=== PATIENT | female | born 1940 | race Caucasian/White ===

== ENCOUNTER 2022-08-04 10:04 | Day surgery (SDC) | payer MEDICARE ==
[2022-08-02 15:58] LABS: BASOPHILS % (AUTO) 0.3 % (0.0-5.0); HEMATOCRIT 40.7 % (36-48); LYMPHOCYTES % (AUTO) 26.4 % (21.0-51.0); MEAN CORPUSCULAR HEMOGLOBIN 30.8 pg (27.0-33.0); MEAN CORPUSCULAR HGB CONC 31.9 g/dL (32.0-36.0); MEAN CORPUSCULAR VOLUME 96.4 fL (79-99); MONOCYTES % (AUTO) 9.7 % (3.0-13.0); NEUTROPHILS % (AUTO) 59.4 % (40.0-77.0); PLATELET COUNT (AUTO) 204 K/uL (130-400); RED BLOOD CELL COUNT(AUTO) 4.22 MIL/uL (4.00-5.50); RED CELL DISTRIBUTION WIDTH 12.6 % (11.0-15.5); WHITE BLOOD COUNT (AUTO) 5.8 K/uL (4.8-10.8)
[2022-08-02 16:10] LABS: CREATININE 0.9 mg/dL (0.5-1.5); POTASSIUM 4.3 mmol/L (3.5-5.1)
[2022-08-02 16:12] LABS: INR 1.35 (0.85-1.15); PROTHROMBIN TIME 14.5 SEC (9.6-11.6)
[2022-08-02 16:13] LABS: PARTIAL THROMBOPLASTIN TIME 39.9 SEC (26.3-35.5)
[2022-08-03 09:52] VITALS: BP 122/65
[2022-08-04] VITALS (14 sets, daily range): BP systolic 121–173; BP diastolic 76–113
[~2022-08-04] VITALS: Ht 166.4 cm; Wt 88.7 kg
[~2022-08-04 10:04] MED LIST: 0.9% NACL 500ML IV.SOLN 500 ML IV SCH; 0.9%NACL 1000ML 1,000 ML IV ONE; ATOR10 PO; CALCIUM/MG/ZINC PO; CAND1TAB14 PO; CHOL100040 PO; LIDOCAINE HCL 2% VISCOUS 15 ML UDCUP ONE; METO50TA9 PO; NIAC500C13 PO; RIVA20TA PO; UBID1CAP56 PO; VITA-395 PO
[2022-08-04] MEDS ORDERED: FENTANYL CITRATE PF 50 MCG/1 ML 2ML VIAL ONE (11:38)
[2022-08-04] MEDS ORDERED: MIDAZOLAM HCL 1 MG/ML 2ML VIAL ONE (11:39)
[2022-08-04] MEDS ORDERED: METO50TA18 PO (12:36)
== END 2022-08-04 13:03 | disposition home or self-care (01) ==
LOC: DAH 10:04
PROVIDERS: ATTEND Student in an Organized Health Care Education/Training Program
DX: I08.1 Rheumatic disorders of both mitral and tricuspid valves (principal); I70.0 Atherosclerosis of aorta; I48.0 Paroxysmal atrial fibrillation; I10 Essential (primary) hypertension; E78.2 Mixed hyperlipidemia; E03.9 Hypothyroidism, unspecified; Z90.710 Acquired absence of both cervix and uterus; Z90.49 Acquired absence of other specified parts of digestive tract; Z90.89 Acquired absence of other organs; Z98.890 Other specified postprocedural states; Z79.01 Long term (current) use of anticoagulants; Z79.899 Other long term (current) drug therapy
CPT/HCPCS: 80048; 85025; 85610; 85730; 36415; 93005; 93325; 93312; A4223 ×3; J3010; J7030; J2250; A4615; A4215; A7002; A4222; A4221; A4663; A4216; A4606; 99152

== ENCOUNTER 2022-09-01 05:45 | Day surgery (SDC) | payer MEDICARE ==
[2022-08-30 10:33] LABS: BASOPHILS % (AUTO) 0.4 % (0.0-5.0); HEMATOCRIT 42.8 % (36-48); LYMPHOCYTES % (AUTO) 29.6 % (21.0-51.0); MEAN CORPUSCULAR HEMOGLOBIN 30.1 pg (27.0-33.0); MEAN CORPUSCULAR VOLUME 94.1 fL (79-99); MONOCYTES % (AUTO) 7.7 % (3.0-13.0); NEUTROPHILS % (AUTO) 56.9 % (40.0-77.0); PLATELET COUNT (AUTO) 205 K/uL (130-400); RED BLOOD CELL COUNT(AUTO) 4.55 MIL/uL (4.00-5.50); RED CELL DISTRIBUTION WIDTH 12.1 % (11.0-15.5); WHITE BLOOD COUNT (AUTO) 5.2 K/uL (4.8-10.8)
[2022-08-30 10:41] LABS: CREATININE 0.9 mg/dL (0.5-1.5); POTASSIUM 3.6 mmol/L (3.5-5.1)
[2022-08-30 10:47] LABS: INR 1.01 (0.85-1.15)
[2022-08-30 10:48] LABS: PARTIAL THROMBOPLASTIN TIME 30.5 SEC (26.3-35.5)
[2022-08-30 11:21] LABS: B-TYPE NATRIURETIC PEPTIDE 155 pg/mL (0-100)
[2022-08-31 08:38] VITALS: BP 119/80
[2022-09-01] VITALS (11 sets, daily range): BP systolic 100–142; BP diastolic 63–81
[~2022-09-01] VITALS: Ht 168.9 cm; Wt 85.8 kg
[~2022-09-01 05:45] MED LIST changes: -0.9% NACL 500ML IV.SOLN 500 ML IV SCH; -0.9%NACL 1000ML 1,000 ML IV ONE; +FUROSEMIDE PO; -LIDOCAINE HCL 2% VISCOUS 15 ML UDCUP ONE; +METO50TA18 PO; -METO50TA9 PO
[2022-09-01] MEDS ORDERED: 0.9%NACL 1000ML 1,000 ML IV ONE (06:18)
[2022-09-01] MEDS ORDERED: NITROGLYCERIN 50MG VIAL ONE (07:13)
[2022-09-01] MEDS ORDERED: VERAPAMIL HCL 2.5 MG/ML VIAL ONE (07:13)
[2022-09-01] MEDS ORDERED: HEPARIN 10,000 UNIT/10ML (1,000 UNIT/ML) VIAL ONE (07:13)
[2022-09-01] MEDS ORDERED: IOHEXOL 350 MG/ML 100ML INFUS..BTL IV ONE (07:13)
[2022-09-01] MEDS ORDERED: IOHEXOL-350 50ML VIAL IV ONE (07:14)
[2022-09-01] MEDS ORDERED: LIDOCAINE HCL 1% MDV 50ML VIAL ONE (07:14)
[2022-09-01] MEDS ORDERED: FENTANYL CITRATE PF 50 MCG/1 ML 2ML VIAL ONE (07:33)
[2022-09-01] MEDS ORDERED: MIDAZOLAM HCL 1 MG/ML 2ML VIAL ONE (07:33)
[2022-09-01] MEDS ORDERED: 0.9%NACL 10ML VIAL IVP SCH (09:30)
== END 2022-09-01 13:00 | disposition home or self-care (01) ==
LOC: DAH 05:45
PROVIDERS: ATTEND Student in an Organized Health Care Education/Training Program
DX: I25.119 Atherosclerotic heart disease of native coronary artery with unspecified angina pectoris (principal); I34.0 Nonrheumatic mitral (valve) insufficiency; I10 Essential (primary) hypertension; E78.2 Mixed hyperlipidemia; I48.0 Paroxysmal atrial fibrillation; E03.9 Hypothyroidism, unspecified; Z79.01 Long term (current) use of anticoagulants; Z79.899 Other long term (current) drug therapy; Z86.16 Personal history of COVID-19; Z90.710 Acquired absence of both cervix and uterus; Z90.49 Acquired absence of other specified parts of digestive tract; Z90.89 Acquired absence of other organs; Z98.890 Other specified postprocedural states
CPT/HCPCS: 80048; 83880; 85025; 85610; 85730; 36415 ×2; 71045; 93005; 93458; 93571; 85347; C1769 ×3; C1894 ×3; C1760; C1887; J3010; J7030; J1644 ×2; J2250; J3490 ×3; Q9967; A4215; A4222; A4221; A4663; A4216; A4606; Q9965 ×2; A4223 ×3; 99156; 99157

== ENCOUNTER 2022-10-20 08:00 | Inpatient (IN) | payer MEDICARE ==
[~2022-10-20] VITALS: Ht 170.2 cm; Wt 90.3 kg
[~2022-10-20 08:00] MED LIST changes: -ATOR10 PO; -CHOL100040 PO; -FUROSEMIDE PO; -METO50TA18 PO
[2022-10-20 09:33] LABS: ABG BASE EXCESS 3.4 mmol/L (-2.0-3.0); ABG HCO3 27.6 mmol/L (21.0-28.0); ABG PCO2 41 mmHg (32-45)
[2022-10-20 09:49] LABS: HEMOGLOBIN A1C 5.4 % (4.0-6.0)
[2022-10-20 09:59] LABS: ALBUMIN 3.3 g/dL (3.5-5.0); CREATININE 0.9 mg/dL (0.5-1.5); HEMATOCRIT 42.3 % (36-48); MEAN CORPUSCULAR HEMOGLOBIN 30.4 pg (27.0-33.0); MEAN CORPUSCULAR HGB CONC 32.4 g/dL (32.0-36.0); MEAN CORPUSCULAR VOLUME 93.8 fL (79-99); PLATELET COUNT (AUTO) 177 K/uL (130-400); POTASSIUM 3.7 mmol/L (3.5-5.1); RED BLOOD CELL COUNT(AUTO) 4.51 MIL/uL (4.00-5.50); RED CELL DISTRIBUTION WIDTH 12.5 % (11.0-15.5); TOTAL PROTEIN, SERUM 6.7 g/dL (6.0-8.3); WHITE BLOOD COUNT (AUTO) 4.7 K/uL (4.8-10.8)
[2022-10-20 10:01] VITALS: BP 123/73
[2022-10-20] MEDS ORDERED: FURO20TA4 PO (10:06)
[2022-10-20] MEDS ORDERED: VITAMIN B12 PO (10:06)
[2022-10-20] MEDS ORDERED: VITAMIN D3 PO (10:06)
[2022-10-20] MEDS ORDERED: METO50TA9 PO (10:06)
[2022-10-20] MEDS ORDERED: ATOR10 PO (10:06)
[2022-10-20] MEDS ORDERED: ASCO100031 PO (10:06)
[2022-10-20 10:09] LABS: INR 0.98 (0.85-1.15); PROTHROMBIN TIME 10.7 SEC (9.6-11.6)
[2022-10-20 10:11] LABS: PARTIAL THROMBOPLASTIN TIME 27.5 SEC (26.3-35.5)
[2022-10-20 10:29] LABS: BAND NEUTROPHILS % (MANUAL) 7 % (0-2); LYMPHOCYTES % (MANUAL) 37 % (22-44); MONOCYTES % (MANUAL) 6 % (2-9); SEGMENTED NEUTROPHILS % 50 % (40-70)
[2022-10-20 10:30] LABS: MAN.DIFF COMMENT-IMPRESSION MANUAL DIFFERENTIAL; PLATELET MORPHOLOGY COMMENT ADEQUATE
[2022-10-20 10:33] LABS: B-TYPE NATRIURETIC PEPTIDE 103 pg/mL (0-100)
[2022-10-23] MEDS ORDERED: AMINOCAPROIC ACID 5,000MG VIAL 15,000 MG in 0.9% NACL 500ML IV.SOLN 420 ML IV PRN (07:30)
[2022-10-23] MEDS ORDERED: NOREPINEPHRINE BITARTRATE 8 MG in 0.9% NACL 250ML 250 ML IV PRN (07:30)
[2022-10-23] MEDS ORDERED: EPINEPHRINE PF 1MG (1:1,000) 10 MG in 0.9% NACL 250ML 240 ML IV PRN (07:30)
[2022-10-23] MEDS ORDERED: CACL 1GM SYG IVP ONE (09:08)
[2022-10-23] MEDS ORDERED: MANNITOL 25% 50ML VIAL IV ONE (09:08)
[2022-10-23] MEDS ORDERED: MAGNESIUM SULFATE 1 GM/2 ML VIAL IM ONE (09:08)
[2022-10-23] MEDS ORDERED: HEPARIN 10,000 UNIT/10ML (1,000 UNIT/ML) VIAL IV ONE (09:08)
[2022-10-23] MEDS ORDERED: AMINOCAPROIC ACID 5,000MG VIAL IV ONE (09:08)
[2022-10-23] MEDS ORDERED: PHENYLEPHRINE HCL 10 MG/ML 1ML VIAL IV ONE (09:08)
[2022-10-23] MEDS ORDERED: LIDOCAINE PF 100MG/5ML (2%) SYRINGE 5ML IVP ONE (09:08)
[2022-10-23] MEDS ORDERED: SODIUM BICARB 8.4% 50ML SYRINGE IVP ONE (09:08)
[2022-10-23] MEDS ORDERED: ALBUMIN (HUMAN) 25% 50 ML IV ONE (09:08)
[2022-10-23 10:30] VITALS: BP 140/87
[2022-10-23] MEDS ORDERED: CEFAZOLIN SODIUM 2 GM VIAL ONE (11:07)
[2022-10-23] MEDS ORDERED: LACTATED RINGERS 1000ML 1,000 ML IV ONE (11:07)
[2022-10-23] MEDS ORDERED: NITROGLYCERIN 50MG/D5W 250ML 1 BOT ONE (12:38)
[2022-10-23] MEDS ORDERED: BUPIVACAINE/PF 0.5% 30ML VIAL ONE (12:59)
[2022-10-23] MEDS ORDERED: CEFAZOLIN SODIUM 1 GM VIAL ONE (12:59)
[2022-10-23] MEDS ORDERED: ROPIVACAINE 0.5% 5MG/ML 30ML IJ ONE (13:06)
[2022-10-23] MEDS ORDERED: LIDOCAINE PF 100MG/5ML (2%) SYRINGE 5ML ONE (13:12)
[2022-10-23] MEDS ORDERED: PROTAMINE SULFATE 10 MG/ML 25ML VIAL IV ONE (13:12)
[2022-10-23] MEDS ORDERED: HEPARIN 10,000 UNIT/10ML (1,000 UNIT/ML) VIAL ONE (13:12)
[2022-10-23] MEDS ORDERED: EPINEPHRINE PF 1MG (1:1,000) 1 MG/ML AMP ONE (13:12)
[2022-10-23] MEDS ORDERED: ESMOLOL HCL 10 MG/ML 10 ML VIAL ONE (13:12)
[2022-10-23] MEDS ORDERED: SODIUM BICARB 50MEQ 50ML VIAL 150 ML ONE (13:12)
[2022-10-23] MEDS ORDERED: NOREPINEPHRINE BITARTRATE 1 MG/1 ML ML IV ONE (13:13)
[2022-10-23] MEDS ORDERED: AMINOCAPROIC ACID 5,000MG VIAL ONE (13:13)
[2022-10-23] MEDS ORDERED: MIDAZOLAM HCL 1 MG/ML 2ML VIAL ONE (13:13)
[2022-10-23] MEDS ORDERED: FENTANYL CITRATE PF 50 MCG/1 ML 20ML VIAL IJ ONE (13:13)
[2022-10-23] MEDS ORDERED: PROPOFOL 10 MG/ML 20ML VIAL IV ONE (13:13)
[2022-10-23] MEDS ORDERED: ROCURONIUM 10MG/1ML SYR 10 MG/ML ML ONE (13:14)
[2022-10-23] MEDS ORDERED: KETAMINE HCL 50MG/ML 10ML VIAL IJ ONE (13:20)
[2022-10-23] MEDS ORDERED: ACETAMINOPHEN 325 MG TAB PO PRN (20:00)
[2022-10-23] MEDS ORDERED: ONDANSETRON 4MG INJ IVP PRN (20:00)
[2022-10-23 20:08] VITALS: BP 150/116
[2022-10-23 20:36] VITALS: BP 139/74
[2022-10-23] MEDS: ATORVASTATIN 10 MG TABLET PO SCH (20:54)
[2022-10-23] MEDS: NIACIN 1000 MG PO SCH (20:54)
[2022-10-23 23:44] VITALS: BP 114/62
[2022-10-24] VITALS (35 sets, daily range): BP systolic 93–162; BP diastolic 34–108
[2022-10-24] MEDS: NIACIN 1000 MG PO SCH ×2 (08:58→21:00)
[2022-10-24] MEDS ORDERED: FUROSEMIDE 20 MG TABLET PO SCH (09:00)
[2022-10-24] MEDS ORDERED: METOPROLOL SUCCINATE 50 MG TAB.SR.24H PO SCH (09:00)
[2022-10-24] MEDS ORDERED: FENTANYL CITRATE PF 50 MCG/1 ML 20ML VIAL IJ ONE (13:25)
[2022-10-24] MEDS ORDERED: MIDAZOLAM HCL 1 MG/ML 5ML VIAL ONE (13:26)
[2022-10-24] MEDS ORDERED: ROCURONIUM 10MG/1ML SYR 10 MG/ML ML ONE (13:26)
[2022-10-24] MEDS ORDERED: PROPOFOL 10 MG/ML 20ML VIAL IV ONE (13:27)
[2022-10-24] MEDS ORDERED: ROPIVACAINE 0.5% 5MG/ML 30ML IJ ONE (14:43)
[2022-10-24] MEDS ORDERED: CEFAZOLIN SODIUM 1 GM VIAL ONE ×3 (14:43→20:11)
[2022-10-24] MEDS ORDERED: INSULIN REGULAR, HUMAN 3ML 100 UNIT in 0.9%NACL 100ML 99 ML IV SCH ×2 (15:30)
[2022-10-24] MEDS ORDERED: NITROGLYCERIN 50MG/D5W 250ML 250 BOT IV SCH (15:30)
[2022-10-24] MEDS ORDERED: MORPHINE 2 MG SYG IV PRN (15:30)
[2022-10-24] MEDS ORDERED: TRAMADOL HCL 50 MG TABLET PO PRN ×2 (15:30)
[2022-10-24] MEDS ORDERED: ACETAMINOPHEN 325 MG TAB PO PRN (15:30)
[2022-10-24] MEDS ORDERED: AMINOCAPROIC ACID 5,000MG VIAL 15,000 MG in 0.9% NACL 250ML 250 ML IV SCH (15:30)
[2022-10-24] MEDS ORDERED: DEXTROSE 50%-WATER 50 ML DISP.SYRIN IV PRN (15:30)
[2022-10-24] MEDS ORDERED: ALBUMIN (HUMAN) 5% 250 ML IV PRN (15:30)
[2022-10-24] MEDS ORDERED: MORPHINE 4 MG SYG IV PRN (15:30)
[2022-10-24] MEDS ORDERED: POTASSIUM PHOS 15 mMOL+NS250ML 250 ML IV PRN (15:30)
[2022-10-24] MEDS ORDERED: PROPOFOL 1000 MG/100 ML 100 ML IV PRN (15:30)
[2022-10-24] MEDS ORDERED: EPINEPHRINE PF 1MG (1:1,000) 10 MG in 0.9% NACL 250ML 240 ML IV PRN (15:30)
[2022-10-24] MEDS ORDERED: ONDANSETRON 4MG INJ IV PRN (15:30)
[2022-10-24] MEDS ORDERED: 0.9%NACL 10ML VIAL IVP PRN (15:30)
[2022-10-24] MEDS ORDERED: GLUCAGON 1MG KIT 1 MG ML IM PRN (15:30)
[2022-10-24] MEDS ORDERED: ACETAMINOPHEN 650 MG SUPPOSITORY RC PRN (15:30)
[2022-10-24] MEDS ORDERED: 0.9%NACL 1000ML 1,000 ML IV SCH (15:30)
[2022-10-24] MEDS ORDERED: 0.9% NACL 500ML IV.SOLN 500 ML IV SCH (15:30)
[2022-10-24] MEDS ORDERED: NOREPINEPHRIN 4MG/NS 250ML 250 ML IV PRN (15:30)
[2022-10-24 15:46] LABS: ABG HCO3 24.2 mmol/L (21.0-28.0); ABG OXYGEN SATURATION 99.7 % (95.0-99.0); ABG PCO2 42 mmHg (32-45)
[2022-10-24 16:29] LABS: ABG HCO3 21.4 mmol/L (21.0-28.0); ABG OXYGEN SATURATION 99.5 % (95.0-99.0); ABG PCO2 28 mmHg (32-45)
[2022-10-24 17:29] LABS: ABG BASE EXCESS 2.6 mmol/L (-2.0-3.0); ABG HCO3 24.6 mmol/L (21.0-28.0); ABG OXYGEN SATURATION 99.4 % (95.0-99.0); ABG PCO2 29 mmHg (32-45)
[2022-10-24 17:47] LABS: ABG BASE EXCESS -0.1 mmol/L (-2.0-3.0); ABG HCO3 23.8 mmol/L (21.0-28.0); ABG OXYGEN SATURATION 96.7 % (95.0-99.0); ABG PCO2 36 mmHg (32-45)
[2022-10-24] MEDS ORDERED: ALBUMIN (HUMAN) 5% 250 ML IV ONE (18:50)
[2022-10-24 18:57] LABS: ABG BASE EXCESS -3.2 mmol/L (-2.0-3.0); ABG HCO3 22.6 mmol/L (21.0-28.0); ABG OXYGEN SATURATION 97.6 % (95.0-99.0); ABG PCO2 44 mmHg (32-45)
[2022-10-24 19:00] LABS: HEMATOCRIT 31.7 % (36-48); MEAN CORPUSCULAR HEMOGLOBIN 30.9 pg (27.0-33.0); MEAN CORPUSCULAR HGB CONC 31.9 g/dL (32.0-36.0); MEAN CORPUSCULAR VOLUME 96.9 fL (79-99); RED BLOOD CELL COUNT(AUTO) 3.27 MIL/uL (4.00-5.50); RED CELL DISTRIBUTION WIDTH 12.4 % (11.0-15.5); WHITE BLOOD COUNT (AUTO) 20.1 K/uL (4.8-10.8)
[2022-10-24] MEDS ORDERED: SODIUM BICARB 50MEQ 50ML VIAL 100 ML ONE (19:08)
[2022-10-24] MEDS ORDERED: POTASSIUM CHLORIDE 20MEQ/100ML 200 ML IV ONE (19:09)
[2022-10-24 19:11] LABS: CREATININE 0.8 mg/dL (0.5-1.5); MAGNESIUM 2.9 mg/dL (1.80-2.40); PHOSPHORUS 2.8 mg/dL (2.5-4.9)
[2022-10-24 19:16] LABS: POTASSIUM 2.8 mmol/L (3.5-5.1)
[2022-10-24] MEDS: POTASSIUM CHLORIDE 20MEQ/100ML 100 ML IV PRN ×6 (19:19→23:20)
[2022-10-24] MEDS: SODIUM BICARB 50MEQ 50ML VIAL IV PRN ×6 (19:19→23:21)
[2022-10-24 19:26] LABS: INR 1.1 (0.85-1.15); PROTHROMBIN TIME 11.9 SEC (9.6-11.6)
[2022-10-24 19:27] LABS: PARTIAL THROMBOPLASTIN TIME 24.4 SEC (26.3-35.5)
[2022-10-24 19:52] LABS: ABG BASE EXCESS -0.8 mmol/L (-2.0-3.0); ABG HCO3 25.4 mmol/L (21.0-28.0); ABG OXYGEN SATURATION 98.2 % (95.0-99.0); ABG PCO2 49 mmHg (32-45)
[2022-10-24] MEDS ORDERED: POTASSIUM CHLORIDE 20MEQ/100ML 100 ML IV ONE ×3 (19:59→23:15)
[2022-10-24] MEDS: CALCIUM GLUC 1GM 1 GM in 0.9%NACL 50ML 50 ML IV PRN ×3 (20:01→23:20)
[2022-10-24] MEDS ORDERED: SODIUM BICARB 50MEQ 50ML VIAL 50 ML ONE ×3 (20:09→23:15)
[2022-10-24] MEDS: CEFAZOLIN SODIUM 1 GM VIAL IV SCH (20:12)
[2022-10-24 20:56] LABS: ABG BASE EXCESS -2.2 mmol/L (-2.0-3.0); ABG HCO3 22.9 mmol/L (21.0-28.0); ABG OXYGEN SATURATION 97.9 % (95.0-99.0); ABG PCO2 41 mmHg (32-45)
[2022-10-24] MEDS ORDERED: 0.2% ROPIVACAINE 600ML Q-PUMP IRRIG SCH (21:00)
[2022-10-24] MEDS: ATORVASTATIN 10 MG TABLET PO SCH (21:15)
[2022-10-24] MEDS: FAMOTIDINE 20MG VIAL IV SCH (21:16)
[2022-10-24 22:01] LABS: ABG HCO3 24.2 mmol/L (21.0-28.0); ABG OXYGEN SATURATION 97.6 % (95.0-99.0); ABG PCO2 42 mmHg (32-45)
[2022-10-24] MEDS ORDERED: CALCIUM GLUC 1GM/10ML VIAL ONE (22:18)
[2022-10-24 23:10] LABS: ABG BASE EXCESS -3.8 mmol/L (-2.0-3.0); ABG HCO3 21.4 mmol/L (21.0-28.0); ABG OXYGEN SATURATION 97.3 % (95.0-99.0); ABG PCO2 39 mmHg (32-45)
[2022-10-25] VITALS (97 sets, daily range): BP systolic 94–167; BP diastolic 37–147
[2022-10-25 00:02] LABS: ABG HCO3 23.2 mmol/L (21.0-28.0); ABG OXYGEN SATURATION 97.2 % (95.0-99.0); ABG PCO2 37 mmHg (32-45)
[2022-10-25] MEDS ORDERED: POTASSIUM CHLORIDE 20MEQ/100ML 100 ML IV ONE ×3 (00:07→01:46)
[2022-10-25] MEDS ORDERED: SODIUM BICARB 50MEQ 50ML VIAL 50 ML ONE ×3 (00:08→02:08)
[2022-10-25] MEDS ORDERED: CALCIUM GLUC 1GM/10ML VIAL ONE (00:08)
[2022-10-25] MEDS: SODIUM BICARB 50MEQ 50ML VIAL IV PRN ×3 (00:10→02:09)
[2022-10-25] MEDS: CALCIUM GLUC 1GM 1 GM in 0.9%NACL 50ML 50 ML IV PRN ×2 (00:10→08:39)
[2022-10-25] MEDS: POTASSIUM CHLORIDE 20MEQ/100ML 100 ML IV PRN ×4 (00:10→04:14)
[2022-10-25 00:55] LABS: ABG BASE EXCESS -1.1 mmol/L (-2.0-3.0); ABG HCO3 23.4 mmol/L (21.0-28.0); ABG OXYGEN SATURATION 96.6 % (95.0-99.0); ABG PCO2 38 mmHg (32-45)
[2022-10-25 02:05] LABS: ABG BASE EXCESS -1.2 mmol/L (-2.0-3.0); ABG HCO3 23.6 mmol/L (21.0-28.0); ABG OXYGEN SATURATION 96.3 % (95.0-99.0); ABG PCO2 40 mmHg (32-45)
[2022-10-25] MEDS ORDERED: CEFAZOLIN SODIUM 1 GM VIAL ONE (03:23)
[2022-10-25] MEDS: CEFAZOLIN SODIUM 1 GM VIAL IV SCH ×2 (03:50→11:53)
[2022-10-25 04:08] LABS: ABG BASE EXCESS -0.2 mmol/L (-2.0-3.0); ABG HCO3 24.4 mmol/L (21.0-28.0); ABG OXYGEN SATURATION 95.3 % (95.0-99.0); ABG PCO2 39 mmHg (32-45)
[2022-10-25 05:33] LABS: HEMATOCRIT 33.4 % (36-48); MEAN CORPUSCULAR VOLUME 96.8 fL (79-99); RED BLOOD CELL COUNT(AUTO) 3.45 MIL/uL (4.00-5.50); RED CELL DISTRIBUTION WIDTH 12.9 % (11.0-15.5); WHITE BLOOD COUNT (AUTO) 17.2 K/uL (4.8-10.8)
[2022-10-25 05:45] LABS: INR 1.01 (0.85-1.15)
[2022-10-25 05:46] LABS: PARTIAL THROMBOPLASTIN TIME 21.5 SEC (26.3-35.5)
[2022-10-25 05:47] LABS: CREATININE 1.3 mg/dL (0.5-1.5); MAGNESIUM 2.3 mg/dL (1.80-2.40); PHOSPHORUS 0.8 mg/dL (2.5-4.9); POTASSIUM 4.5 mmol/L (3.5-5.1)
[2022-10-25] MEDS: FUROSEMIDE 20MG VIAL IV SCH ×2 (08:00→21:03)
[2022-10-25] MEDS: FAMOTIDINE 20MG VIAL IV SCH ×2 (08:00→21:03)
[2022-10-25] MEDS: ASPIRIN 81 MG EC TAB PO SCH (08:00)
[2022-10-25] MEDS: NIACIN 1000 MG PO SCH ×2 (08:01→21:00)
[2022-10-25 13:29] LABS: ABG BASE EXCESS 5.6 mmol/L (-2.0-3.0); ABG HCO3 29.7 mmol/L (21.0-28.0); ABG OXYGEN SATURATION 93.6 % (95.0-99.0); ABG PCO2 42 mmHg (32-45)
[2022-10-25 18:42] LABS: ABG BASE EXCESS 7.4 mmol/L (-2.0-3.0); ABG HCO3 31.5 mmol/L (21.0-28.0); ABG OXYGEN SATURATION 90.7 % (95.0-99.0); ABG PCO2 43 mmHg (32-45)
[2022-10-25] MEDS: ATORVASTATIN 10 MG TABLET PO SCH (21:03)
[2022-10-25 22:47] LABS: ABG BASE EXCESS 5.4 mmol/L (-2.0-3.0); ABG HCO3 29.2 mmol/L (21.0-28.0); ABG OXYGEN SATURATION 93.7 % (95.0-99.0); ABG PCO2 40 mmHg (32-45)
[2022-10-26] VITALS (43 sets, daily range): BP systolic 89–291; BP diastolic 55–291
[2022-10-26] MEDS ORDERED: DIGOXIN 250 MCG/ML 2ML AMP ONE (00:07)
[2022-10-26] MEDS ORDERED: AMIODARONE 150MG VIAL ONE (00:08)
[2022-10-26] MEDS ORDERED: DIGOXIN 250 MCG/ML 2ML AMP IV SCH (00:30)
[2022-10-26] MEDS ORDERED: AMIODARONE 900MG VIAL 360 MG in DEXTROSE 5%-WATER 200 ML IV SCH (00:30)
[2022-10-26] MEDS ORDERED: AMIODARONE 150MG VIAL 150 MG in DEXTROSE 5%-WATER 100 ML IV ONE (01:00)
[2022-10-26 04:59] LABS: ABG BASE EXCESS 8.2 mmol/L (-2.0-3.0); ABG HCO3 32.3 mmol/L (21.0-28.0); ABG PCO2 43 mmHg (32-45)
[2022-10-26 05:42] LABS: POTASSIUM 3.4 mmol/L (3.5-5.1)
[2022-10-26 05:46] LABS: HEMATOCRIT 31.4 % (36-48); MEAN CORPUSCULAR HEMOGLOBIN 30.9 pg (27.0-33.0); MEAN CORPUSCULAR HGB CONC 31.5 g/dL (32.0-36.0); MEAN CORPUSCULAR VOLUME 98.1 fL (79-99); RED BLOOD CELL COUNT(AUTO) 3.2 MIL/uL (4.00-5.50); RED CELL DISTRIBUTION WIDTH 13.1 % (11.0-15.5); WHITE BLOOD COUNT (AUTO) 15.4 K/uL (4.8-10.8)
[2022-10-26] MEDS ORDERED: AMIODARONE 900MG VIAL 540 MG in DEXTROSE 5%-WATER 300 ML IV SCH (06:30)
[2022-10-26] MEDS ORDERED: METOPROLOL TARTRATE 25 MG TAB ONE (07:10)
[2022-10-26] MEDS ORDERED: FUROSEMIDE 20 MG TABLET ONE (07:10)
[2022-10-26] MEDS: FAMOTIDINE 20MG VIAL IV SCH ×2 (07:12→20:07)
[2022-10-26] MEDS: METOPROLOL TARTRATE 25 MG TAB PO SCH ×2 (07:13→20:07)
[2022-10-26] MEDS: FUROSEMIDE 20 MG TABLET PO SCH ×2 (07:13→16:41)
[2022-10-26] MEDS: ASPIRIN 81 MG EC TAB PO SCH (07:13)
[2022-10-26] MEDS: NIACIN 1000 MG PO SCH ×2 (07:13→20:08)
[2022-10-26] MEDS: INSULIN HUMULIN R 100 UNIT/ML 3ML SQ SCH ×3 (11:30→19:57)
[2022-10-26] MEDS ORDERED: POTASSIUM CHLORIDE 20MEQ/100ML 100 ML IV PRN (17:00)
[2022-10-26] MEDS ORDERED: LIDOCAINE HCL-MPF 1% 2ML VIAL IV PRN (17:00)
[2022-10-26] MEDS: KCL 20 MEQ ERTAB PO PRN ×2 (17:17→18:56)
[2022-10-26 19:46] LABS: ABG BASE EXCESS 5.8 mmol/L (-2.0-3.0); ABG HCO3 28.9 mmol/L (21.0-28.0); ABG OXYGEN SATURATION 94.6 % (95.0-99.0); ABG PCO2 37 mmHg (32-45)
[2022-10-26] MEDS: ATORVASTATIN 10 MG TABLET PO SCH (20:07)
[2022-10-27 03:45] LABS: HEMATOCRIT 29.7 % (36-48); MEAN CORPUSCULAR HEMOGLOBIN 30.6 pg (27.0-33.0); MEAN CORPUSCULAR VOLUME 98.7 fL (79-99); RED BLOOD CELL COUNT(AUTO) 3.01 MIL/uL (4.00-5.50); WHITE BLOOD COUNT (AUTO) 11.7 K/uL (4.8-10.8)
[2022-10-27 03:57] LABS: CREATININE 0.9 mg/dL (0.5-1.5); POTASSIUM 3.6 mmol/L (3.5-5.1)
[2022-10-27 04:25] VITALS: BP 120/73
[2022-10-27] MEDS: INSULIN HUMULIN R 100 UNIT/ML 3ML SQ SCH ×4 (06:07→21:51)
[2022-10-27] MEDS: KCL 20 MEQ ERTAB PO PRN ×2 (06:10→09:35)
[2022-10-27 07:31] VITALS: BP 141/77
[2022-10-27] MEDS: NIACIN 1000 MG PO SCH ×2 (08:36→21:00)
[2022-10-27] MEDS: ENOXAPARIN SODIUM 30 MG/0.3 ML SQ SCH (09:00)
[2022-10-27] MEDS: METOPROLOL TARTRATE 25 MG TAB PO SCH ×2 (09:34→21:48)
[2022-10-27] MEDS: ASPIRIN 81 MG EC TAB PO SCH (09:35)
[2022-10-27] MEDS: FUROSEMIDE 20 MG TABLET PO SCH ×2 (09:35→17:28)
[2022-10-27] MEDS: FAMOTIDINE 20MG VIAL IV SCH ×2 (09:35→21:48)
[2022-10-27 11:51] VITALS: BP 125/64
[2022-10-27 16:04] VITALS: BP 119/80
[2022-10-27 19:31] VITALS: BP 118/67
[2022-10-27] MEDS: ATORVASTATIN 10 MG TABLET PO SCH (21:48)
[2022-10-28] VITALS (7 sets, daily range): BP systolic 105–135; BP diastolic 56–90
[2022-10-28 03:36] LABS: HEMATOCRIT 29.1 % (36-48); MEAN CORPUSCULAR HEMOGLOBIN 30.7 pg (27.0-33.0); MEAN CORPUSCULAR HGB CONC 31.6 g/dL (32.0-36.0); RED CELL DISTRIBUTION WIDTH 12.5 % (11.0-15.5); WHITE BLOOD COUNT (AUTO) 8.2 K/uL (4.8-10.8)
[2022-10-28 03:48] LABS: CREATININE 0.7 mg/dL (0.5-1.5); POTASSIUM 3.4 mmol/L (3.5-5.1)
[2022-10-28] MEDS: KCL 20 MEQ ERTAB PO PRN (05:47)
[2022-10-28] MEDS: INSULIN HUMULIN R 100 UNIT/ML 3ML SQ SCH ×4 (06:22→21:00)
[2022-10-28] MEDS: FUROSEMIDE 20 MG TABLET PO SCH ×2 (08:10→16:44)
[2022-10-28] MEDS: FAMOTIDINE 20MG VIAL IV SCH ×2 (08:10→20:15)
[2022-10-28] MEDS: METOPROLOL TARTRATE 25 MG TAB PO SCH ×2 (08:10→20:16)
[2022-10-28] MEDS: ASPIRIN 81 MG EC TAB PO SCH (08:10)
[2022-10-28] MEDS: ENOXAPARIN SODIUM 30 MG/0.3 ML SQ SCH (08:11)
[2022-10-28] MEDS: NIACIN 1000 MG PO SCH ×2 (08:11→21:00)
[2022-10-28] MEDS: POTASSIUM CHLORIDE 10% ELIXIR 20 MEQ/15 ML UDCUP PO PRN ×2 (08:12→20:15)
[2022-10-28] MEDS ORDERED: ARTIFICAL TEARS SOL 15 ML OU PRN (11:30)
[2022-10-28] MEDS: ATORVASTATIN 10 MG TABLET PO SCH (20:15)
[2022-10-29 03:58] VITALS: BP 124/79
[2022-10-29 04:21] LABS: BASOPHILS % (AUTO) 0.2 % (0.0-5.0); EOSINOPHILS % (AUTO) 3.4 % (0.0-8.0); HEMATOCRIT 30.8 % (36-48); LYMPHOCYTES % (AUTO) 18.5 % (21.0-51.0); MEAN CORPUSCULAR HEMOGLOBIN 30.6 pg (27.0-33.0); MEAN CORPUSCULAR HGB CONC 31.5 g/dL (32.0-36.0); MEAN CORPUSCULAR VOLUME 97.2 fL (79-99); MONOCYTES % (AUTO) 7.5 % (3.0-13.0); NEUTROPHILS % (AUTO) 69.9 % (40.0-77.0); PLATELET COUNT (AUTO) 69 K/uL (130-400); RED BLOOD CELL COUNT(AUTO) 3.17 MIL/uL (4.00-5.50); RED CELL DISTRIBUTION WIDTH 12.3 % (11.0-15.5); WHITE BLOOD COUNT (AUTO) 6.6 K/uL (4.8-10.8)
[2022-10-29 04:31] LABS: CREATININE 0.8 mg/dL (0.5-1.5); POTASSIUM 3.7 mmol/L (3.5-5.1)
[2022-10-29] MEDS: POTASSIUM CHLORIDE 10% ELIXIR 20 MEQ/15 ML UDCUP PO PRN ×2 (05:33→17:24)
[2022-10-29] MEDS: INSULIN HUMULIN R 100 UNIT/ML 3ML SQ SCH ×4 (07:30→20:00)
[2022-10-29 07:37] VITALS: BP 132/75
[2022-10-29] MEDS: FUROSEMIDE 20 MG TABLET PO SCH ×2 (08:28→17:23)
[2022-10-29] MEDS: FAMOTIDINE 20MG VIAL IV SCH ×2 (08:28→20:13)
[2022-10-29] MEDS: ASPIRIN 81 MG EC TAB PO SCH (08:28)
[2022-10-29] MEDS: METOPROLOL TARTRATE 25 MG TAB PO SCH ×2 (08:28→20:13)
[2022-10-29] MEDS: ENOXAPARIN SODIUM 30 MG/0.3 ML SQ SCH (08:29)
[2022-10-29] MEDS: NIACIN 1000 MG PO SCH ×2 (08:36→20:18)
[2022-10-29 11:39] VITALS: BP 134/70
[2022-10-29 16:40] VITALS: BP 124/67
[2022-10-29 19:56] VITALS: BP 127/83
[2022-10-29] MEDS: ATORVASTATIN 10 MG TABLET PO SCH (20:13)
[2022-10-29 23:40] VITALS: BP 124/78
[2022-10-30 03:51] VITALS: BP 153/77
[2022-10-30 04:26] LABS: EOSINOPHILS % (AUTO) 1.2 % (0.0-8.0); HEMATOCRIT 28.4 % (36-48); LYMPHOCYTES % (AUTO) 14.5 % (21.0-51.0); MEAN CORPUSCULAR HEMOGLOBIN 30.5 pg (27.0-33.0); MEAN CORPUSCULAR HGB CONC 32.7 g/dL (32.0-36.0); MEAN CORPUSCULAR VOLUME 93.1 fL (79-99); MONOCYTES % (AUTO) 4.4 % (3.0-13.0); NEUTROPHILS % (AUTO) 79.2 % (40.0-77.0); PLATELET COUNT (AUTO) 100 K/uL (130-400); RED BLOOD CELL COUNT(AUTO) 3.05 MIL/uL (4.00-5.50); RED CELL DISTRIBUTION WIDTH 12.4 % (11.0-15.5); WHITE BLOOD COUNT (AUTO) 7.2 K/uL (4.8-10.8)
[2022-10-30 04:42] LABS: CREATININE 0.8 mg/dL (0.5-1.5); POTASSIUM 3.7 mmol/L (3.5-5.1)
[2022-10-30] MEDS: INSULIN HUMULIN R 100 UNIT/ML 3ML SQ SCH ×4 (07:30→20:32)
[2022-10-30 08:00] VITALS: BP 132/62
[2022-10-30] MEDS: NIACIN 1000 MG PO SCH ×2 (09:00→20:28)
[2022-10-30] MEDS: ASPIRIN 81 MG EC TAB PO SCH (09:00)
[2022-10-30] MEDS: ENOXAPARIN SODIUM 30 MG/0.3 ML SQ SCH (09:00)
[2022-10-30] MEDS: FAMOTIDINE 20MG VIAL IV SCH ×2 (09:58→20:19)
[2022-10-30] MEDS: KCL 20 MEQ ERTAB PO PRN ×2 (09:59→12:43)
[2022-10-30] MEDS: METOPROLOL TARTRATE 25 MG TAB PO SCH ×2 (09:59→20:19)
[2022-10-30] MEDS: FUROSEMIDE 20 MG TABLET PO SCH ×2 (10:00→17:21)
[2022-10-30 12:23] VITALS: BP 142/71
[2022-10-30 19:55] VITALS: BP 138/78
[2022-10-30 19:56] VITALS: BP 126/54
[2022-10-30] MEDS: ATORVASTATIN 10 MG TABLET PO SCH (20:19)
[2022-10-31 00:04] VITALS: BP 136/86
[2022-10-31 03:59] LABS: BASOPHILS % (AUTO) 0.2 % (0.0-5.0); EOSINOPHILS % (AUTO) 1.5 % (0.0-8.0); LYMPHOCYTES % (AUTO) 13.3 % (21.0-51.0); MEAN CORPUSCULAR HEMOGLOBIN 30.3 pg (27.0-33.0); MEAN CORPUSCULAR HGB CONC 31.7 g/dL (32.0-36.0); MEAN CORPUSCULAR VOLUME 95.5 fL (79-99); MONOCYTES % (AUTO) 5.7 % (3.0-13.0); NEUTROPHILS % (AUTO) 78.4 % (40.0-77.0); PLATELET COUNT (AUTO) 120 K/uL (130-400); RED BLOOD CELL COUNT(AUTO) 3.14 MIL/uL (4.00-5.50); RED CELL DISTRIBUTION WIDTH 12.3 % (11.0-15.5); WHITE BLOOD COUNT (AUTO) 6.5 K/uL (4.8-10.8)
[2022-10-31 04:13] LABS: CREATININE 0.8 mg/dL (0.5-1.5); POTASSIUM 3.5 mmol/L (3.5-5.1)
[2022-10-31 04:21] VITALS: BP 109/59
[2022-10-31] MEDS: KCL 20 MEQ ERTAB PO PRN ×2 (04:51→06:18)
[2022-10-31] MEDS: INSULIN HUMULIN R 100 UNIT/ML 3ML SQ SCH ×4 (06:02→20:41)
[2022-10-31 07:30] VITALS: BP 115/61
[2022-10-31] MEDS: METOPROLOL TARTRATE 25 MG TAB PO SCH ×2 (08:58→20:10)
[2022-10-31] MEDS: FUROSEMIDE 20 MG TABLET PO SCH ×2 (08:59→17:40)
[2022-10-31] MEDS: ASPIRIN 81 MG EC TAB PO SCH (08:59)
[2022-10-31] MEDS: FAMOTIDINE 20MG VIAL IV SCH ×2 (08:59→20:10)
[2022-10-31] MEDS: ENOXAPARIN SODIUM 30 MG/0.3 ML SQ SCH (09:00)
[2022-10-31] MEDS: NIACIN 1000 MG PO SCH ×2 (09:00→20:10)
[2022-10-31 11:27] VITALS: BP 97/55
[2022-10-31 19:53] VITALS: BP 105/58
[2022-10-31] MEDS: ATORVASTATIN 10 MG TABLET PO SCH (20:10)
[2022-11-01] VITALS (7 sets, daily range): BP systolic 111–143; BP diastolic 62–78
[2022-11-01 03:44] LABS: EOSINOPHILS % (AUTO) 3.2 % (0.0-8.0); HEMATOCRIT 28.4 % (36-48); LYMPHOCYTES % (AUTO) 19.2 % (21.0-51.0); MEAN CORPUSCULAR HEMOGLOBIN 29.7 pg (27.0-33.0); MEAN CORPUSCULAR VOLUME 95.9 fL (79-99); MONOCYTES % (AUTO) 7.1 % (3.0-13.0); PLATELET COUNT (AUTO) 132 K/uL (130-400); RED BLOOD CELL COUNT(AUTO) 2.96 MIL/uL (4.00-5.50); RED CELL DISTRIBUTION WIDTH 12.3 % (11.0-15.5); WHITE BLOOD COUNT (AUTO) 5.9 K/uL (4.8-10.8)
[2022-11-01 03:48] LABS: CREATININE 0.7 mg/dL (0.5-1.5); MAGNESIUM 1.8 mg/dL (1.80-2.40); POTASSIUM 3.7 mmol/L (3.5-5.1)
[2022-11-01] MEDS: KCL 20 MEQ ERTAB PO PRN ×2 (06:02→07:53)
[2022-11-01] MEDS: INSULIN HUMULIN R 100 UNIT/ML 3ML SQ SCH ×4 (06:13→21:00)
[2022-11-01] MEDS: FUROSEMIDE 20 MG TABLET PO SCH ×2 (07:52→16:39)
[2022-11-01] MEDS: METOPROLOL TARTRATE 25 MG TAB PO SCH ×2 (07:53→21:48)
[2022-11-01] MEDS: FAMOTIDINE 20MG VIAL IV SCH ×2 (07:53→21:00)
[2022-11-01] MEDS: ASPIRIN 81 MG EC TAB PO SCH (07:53)
[2022-11-01] MEDS: NIACIN 1000 MG PO SCH ×2 (07:54→21:00)
[2022-11-01] MEDS: ENOXAPARIN SODIUM 30 MG/0.3 ML SQ SCH (07:54)
[2022-11-01] MEDS: MAGNESIUM 2GM PREMIX 50ML 50 ML IV PRN (10:23)
[2022-11-01] MEDS ORDERED: FAMOTIDINE 20MG TAB ONE (21:33)
[2022-11-01] MEDS: ATORVASTATIN 10 MG TABLET PO SCH (21:48)
[2022-11-02 00:15] VITALS: BP 122/65
[2022-11-02 03:15] VITALS: BP 149/83
[2022-11-02 03:28] LABS: BASOPHILS % (AUTO) 0.2 % (0.0-5.0); EOSINOPHILS % (AUTO) 4.5 % (0.0-8.0); HEMATOCRIT 28.4 % (36-48); LYMPHOCYTES % (AUTO) 16.3 % (21.0-51.0); MEAN CORPUSCULAR HEMOGLOBIN 30.4 pg (27.0-33.0); MONOCYTES % (AUTO) 6.6 % (3.0-13.0); NEUTROPHILS % (AUTO) 70.8 % (40.0-77.0); PLATELET COUNT (AUTO) 161 K/uL (130-400); RED BLOOD CELL COUNT(AUTO) 2.99 MIL/uL (4.00-5.50); RED CELL DISTRIBUTION WIDTH 12.5 % (11.0-15.5); WHITE BLOOD COUNT (AUTO) 5.8 K/uL (4.8-10.8)
[2022-11-02 03:50] LABS: CREATININE 0.7 mg/dL (0.5-1.5); MAGNESIUM 2.1 mg/dL (1.80-2.40); POTASSIUM 3.7 mmol/L (3.5-5.1)
[2022-11-02] MEDS: KCL 20 MEQ ERTAB PO PRN ×2 (05:07→08:03)
[2022-11-02] MEDS: INSULIN HUMULIN R 100 UNIT/ML 3ML SQ SCH ×4 (07:30→21:00)
[2022-11-02 07:45] VITALS: BP 125/75
[2022-11-02] MEDS: ENOXAPARIN SODIUM 30 MG/0.3 ML SQ SCH (08:02)
[2022-11-02] MEDS: ASPIRIN 81 MG EC TAB PO SCH (08:02)
[2022-11-02] MEDS: FAMOTIDINE 20MG TAB PO SCH ×2 (08:03→20:08)
[2022-11-02] MEDS: METOPROLOL TARTRATE 25 MG TAB PO SCH ×2 (08:03→20:08)
[2022-11-02] MEDS: NIACIN 1000 MG PO SCH ×2 (08:05→20:08)
[2022-11-02] MEDS: FUROSEMIDE 20 MG TABLET PO SCH ×2 (08:11→09:18)
[2022-11-02] MEDS: FUROSEMIDE 40 MG TABLET PO SCH ×2 (09:00→17:51)
[2022-11-02 12:25] VITALS: BP 110/58
[2022-11-02 17:34] VITALS: BP 119/74
[2022-11-02 19:12] VITALS: BP 98/55
[2022-11-02] MEDS: ATORVASTATIN 10 MG TABLET PO SCH (20:08)
[2022-11-03 00:12] VITALS: BP 129/76
[2022-11-03 03:12] VITALS: BP 115/72
[2022-11-03 03:57] LABS: BASOPHILS % (AUTO) 0.2 % (0.0-5.0); EOSINOPHILS % (AUTO) 5.9 % (0.0-8.0); HEMATOCRIT 28.2 % (36-48); LYMPHOCYTES % (AUTO) 19.6 % (21.0-51.0); MEAN CORPUSCULAR HEMOGLOBIN 30.1 pg (27.0-33.0); MEAN CORPUSCULAR HGB CONC 31.6 g/dL (32.0-36.0); MEAN CORPUSCULAR VOLUME 95.3 fL (79-99); MONOCYTES % (AUTO) 7.4 % (3.0-13.0); NEUTROPHILS % (AUTO) 65.9 % (40.0-77.0); PLATELET COUNT (AUTO) 206 K/uL (130-400); RED BLOOD CELL COUNT(AUTO) 2.96 MIL/uL (4.00-5.50); RED CELL DISTRIBUTION WIDTH 12.7 % (11.0-15.5); WHITE BLOOD COUNT (AUTO) 5.8 K/uL (4.8-10.8)
[2022-11-03 04:06] LABS: CREATININE 0.7 mg/dL (0.5-1.5); MAGNESIUM 1.9 mg/dL (1.80-2.40); POTASSIUM 3.3 mmol/L (3.5-5.1)
[2022-11-03] MEDS: MAGNESIUM 2GM PREMIX 50ML 50 ML IV PRN (05:05)
[2022-11-03] MEDS: KCL 20 MEQ ERTAB PO PRN ×2 (05:07→09:19)
[2022-11-03] MEDS: INSULIN HUMULIN R 100 UNIT/ML 3ML SQ SCH ×2 (06:16→11:30)
[2022-11-03 08:00] VITALS: BP 124/67
[2022-11-03] MEDS: NIACIN 1000 MG PO SCH (09:00)
[2022-11-03] MEDS: FAMOTIDINE 20MG TAB PO SCH (09:15)
[2022-11-03] MEDS: ENOXAPARIN SODIUM 30 MG/0.3 ML SQ SCH (09:15)
[2022-11-03] MEDS: ASPIRIN 81 MG EC TAB PO SCH (09:15)
[2022-11-03] MEDS: METOPROLOL TARTRATE 25 MG TAB PO SCH (09:16)
[2022-11-03] MEDS: FUROSEMIDE 40 MG TABLET PO SCH (09:16)
[2022-11-03 11:00] VITALS: BP 130/68
[2022-11-03] MEDS ORDERED: METO25 PO (13:30)
[2022-11-03] MEDS ORDERED: FURO40TA7 PO (13:30)
[2022-11-03] MEDS ORDERED: AEC81 PO (13:30)
== END 2022-11-03 14:22 | disposition home or self-care (01) | DRG 219 ==
LOC: DAHIP 10-23 10:20 → 2AH 10-23 19:55 → 2CV 10-24 11:54 → 2CH 10-25 06:16 → 2DH 10-26 13:59
PROVIDERS: ADMIT Thoracic Surgery (Cardiothoracic Vascular Surgery); ATTEND Thoracic Surgery (Cardiothoracic Vascular Surgery)
PROC: 02UG0JZ Supplement Mitral Valve with Synthetic Substitute, Open Approach (ICD-10-PCS; principal; 2022-10-24)
PROC: 02QG0ZZ Repair Mitral Valve, Open Approach (ICD-10-PCS; 2022-10-24)
PROC: 02BG0ZZ Excision of Mitral Valve, Open Approach (ICD-10-PCS; 2022-10-24)
PROC: 5A1221Z Performance of Cardiac Output, Continuous (ICD-10-PCS; 2022-10-24)
PROC: B24BZZ4 Ultrasonography of Heart with Aorta, Transesophageal (ICD-10-PCS; 2022-10-24)
DX: I34.0 Nonrheumatic mitral (valve) insufficiency (principal); J96.01 Acute respiratory failure with hypoxia; E87.1 Hypo-osmolality and hyponatremia; T79.7XXA Traumatic subcutaneous emphysema, initial encounter; J93.82 Other air leak; J93.9 Pneumothorax, unspecified; I25.10 Atherosclerotic heart disease of native coronary artery without angina pectoris; E78.5 Hyperlipidemia, unspecified; I11.0 Hypertensive heart disease with heart failure; I48.91 Unspecified atrial fibrillation; I50.9 Heart failure, unspecified; D69.6 Thrombocytopenia, unspecified; E78.00 Pure hypercholesterolemia, unspecified; I27.20 Pulmonary hypertension, unspecified; J84.10 Pulmonary fibrosis, unspecified; J98.4 Other disorders of lung; Z79.899 Other long term (current) drug therapy; Z95.2 Presence of prosthetic heart valve; Z79.01 Long term (current) use of anticoagulants
CPT/HCPCS: 36415; 36600; 71045; 71250; 80048; 80053; 80061; 82330; 82435; 82803; 82947; 82948; 83036; 83605; 83735; 83880; 84100; 84132; 84295; 85018; 85025; 85027; 85347; 85610; 85730; 86850; 86900; 86901; 86923; 87426; 87641; 93005; 93312; 93318; 93880; 94002; 94003; 94010; 94150; 97039; A7048; G0378; J0171; J0282; J0610; J0690; J1160; J1644; J1650; J1815; J1940; J2001; J2150; J2250; J2370; J2704; J2720; J2795; J3010; J3475; J3480; J3490; J7030; J7040; J7060; J7120; P9045; P9047

== ENCOUNTER → 2023-08-06 | Outpatient (CLI) | payer MEDICARE ==
[~2023-08-06] MED LIST changes: +AEC81 PO; +ASCO100031 PO; +ATOR10 PO; -CAND1TAB14 PO; +FURO20TA4 PO; +FURO40TA7 PO; +METO25 PO; +METO25TA3 PO; -NIAC500C13 PO; +NIAC500C9 PO; -RIVA20TA PO; +VITAMIN B12 PO; +VITAMIN D3 PO
== END | disposition home or self-care (01) ==
LOC: SHCH 14:57
PROVIDERS: ATTEND Student in an Organized Health Care Education/Training Program
DX: I08.8 Other rheumatic multiple valve diseases (principal); Z95.2 Presence of prosthetic heart valve
CPT/HCPCS: 93306

== ENCOUNTER 2023-08-14 06:21 | Day surgery (SDC) | payer MEDICARE ==
[2023-08-10 14:35] VITALS: BP_SYST 154; BP_DIAS 101; BP_DIAS 81; PULSE 107; RESP 18
[2023-08-10 14:38] LABS: BASOPHILS # (AUTO) 0.03 K/uL (0.00-0.20); BASOPHILS % (AUTO) 0.5 % (0.0-5.0); EOSINOPHILS # (AUTO) 0.28 K/uL (0.00-0.70); EOSINOPHILS % (AUTO) 4.5 % (0.0-8.0); IMMATURE GRANULOCYTE ABSOLUTE 0.02 K/uL (0-1); LYMPHOCYTES # (AUTO) 1.8 K/uL (1.0-4.8); LYMPHOCYTES % (AUTO) 28.5 % (21.0-51.0); MEAN CORPUSCULAR HEMOGLOBIN 31.2 pg (27.0-33.0); MEAN CORPUSCULAR HGB CONC 31.3 g/dL (32.0-36.0); MEAN CORPUSCULAR VOLUME 99.5 fL (79-99); MONOCYTES # (AUTO) 0.5 K/uL (0.1-1.0); MONOCYTES % (AUTO) 8.3 % (3.0-13.0); NEUTROPHILS # (AUTO) 3.6 K/uL (1.8-7.7); NEUTROPHILS % (AUTO) 57.9 % (40.0-77.0); PLATELET COUNT (AUTO) 189 K/uL (130-400); RED BLOOD CELL COUNT(AUTO) 3.82 MIL/uL (4.00-5.50); RED CELL DISTRIBUTION WIDTH 14.2 % (11.0-15.5); WHITE BLOOD COUNT (AUTO) 6.2 K/uL (4.8-10.8)
[2023-08-10 14:50] LABS: INR 0.96 (0.85-1.15); PROTHROMBIN TIME 11.2 SEC (9.6-11.6)
[2023-08-10 14:51] LABS: PARTIAL THROMBOPLASTIN TIME 28.8 SEC (26.3-35.5)
[2023-08-10 14:58] LABS: CREATININE 0.8 mg/dL (0.5-1.5); POTASSIUM 4.2 mmol/L (3.5-5.1)
[~2023-08-14] VITALS: Ht 167.6 cm; Wt 76.8 kg
[2023-08-14] VITALS (9 sets, daily range): BP systolic 130–159; BP diastolic 76–108; PULSE 75–88; RESP 16–20
[~2023-08-14 06:21] MED LIST changes: -AEC81 PO; -FURO40TA7 PO; -METO25 PO
[2023-08-14] MEDS ORDERED: FENTANYL CITRATE PF 50 MCG/1 ML 2ML VIAL ONE (07:34)
[2023-08-14] MEDS ORDERED: MIDAZOLAM HCL 1 MG/ML 2ML VIAL ONE (07:35)
[2023-08-14] MEDS ORDERED: NALOXONE HCL 0.4 MG/1 ML ML ONE (07:35)
[2023-08-14] MEDS ORDERED: FLUMAZENIL 0.1MG/1ML 5ML VIAL IV ONE (07:36)
[2023-08-14] MEDS: 0.9%NACL 1000ML 1,000 ML IV ONE (07:51)
[2023-08-14] MEDS ORDERED: MIDAZOLAM HCL 1 MG/ML 2ML VIAL IVP ONE (08:00)
[2023-08-14] MEDS ORDERED: FENTANYL CITRATE PF 50 MCG/1 ML 2ML VIAL IVP ONE (08:00)
[2023-08-14] MEDS: LIDOCAINE HCL 2% VISCOUS 15 ML UDCUP ONE (08:06)
[2023-08-14] MEDS: LIDOCAINE HCL 2% VISCOUS 15 ML UDCUP PO ONE (08:50)
== END 2023-08-14 09:40 | disposition home or self-care (01) ==
LOC: DAH 06:21 → EDSTATUS 16:00
PROVIDERS: ATTEND Student in an Organized Health Care Education/Training Program
DX: I48.20 Chronic atrial fibrillation, unspecified (principal); I37.1 Nonrheumatic pulmonary valve insufficiency; I48.92 Unspecified atrial flutter; I10 Essential (primary) hypertension; E78.2 Mixed hyperlipidemia; Z79.01 Long term (current) use of anticoagulants; Z79.899 Other long term (current) drug therapy; Z98.890 Other specified postprocedural states; Z79.82 Long term (current) use of aspirin; Z90.49 Acquired absence of other specified parts of digestive tract; Z90.710 Acquired absence of both cervix and uterus; Z90.89 Acquired absence of other organs
CPT/HCPCS: 80048; 85025; 85610; 85730; 36415; 93005; 93325; 93312; J3010; J7030; J2250; A4615; A4215; A4223 ×3; A4657; A4213; A7002; A4222; A4221; A4663; A4216; A4606; 99152; J2310; J3490; G0500

== ENCOUNTER → 2023-08-23 | Outpatient (CLI) | payer MEDICARE ==
[~2023-08-23] MED LIST changes: +IOHEXOL 350 MG/ML 100ML INFUS..BTL IV ONE; +IOHEXOL-350 75 ML VIAL IV ONE
== END | disposition home or self-care (01) ==
LOC: RAH 09:56
PROVIDERS: ATTEND Student in an Organized Health Care Education/Training Program
DX: I71.20 Thoracic aortic aneurysm, without rupture, unspecified (principal); J90 Pleural effusion, not elsewhere classified; I51.7 Cardiomegaly
CPT/HCPCS: 71275; Q9967 ×2

== ENCOUNTER → 2024-06-06 | Outpatient (CLI) | payer MEDICARE ==
[~2024-06-06] MED LIST changes: -IOHEXOL 350 MG/ML 100ML INFUS..BTL IV ONE; -IOHEXOL-350 75 ML VIAL IV ONE
[2024-06-06 12:29] LABS: BASOPHILS # (AUTO) 0.03 K/uL (0.00-0.20); BASOPHILS % (AUTO) 0.5 % (0.0-5.0); EOSINOPHILS # (AUTO) 0.17 K/uL (0.00-0.70); IMMATURE GRANULOCYTE ABSOLUTE 0.01 K/uL (0-1); LYMPHOCYTES # (AUTO) 1.7 K/uL (1.0-4.8); LYMPHOCYTES % (AUTO) 29.9 % (21.0-51.0); MEAN CORPUSCULAR HEMOGLOBIN 29.9 pg (27.0-33.0); MEAN CORPUSCULAR HGB CONC 31.4 g/dL (32.0-36.0); MONOCYTES # (AUTO) 0.5 K/uL (0.1-1.0); MONOCYTES % (AUTO) 8.8 % (3.0-13.0); NEUTROPHILS # (AUTO) 3.2 K/uL (1.8-7.7); NEUTROPHILS % (AUTO) 57.6 % (40.0-77.0); PLATELET COUNT (AUTO) 210 K/uL (130-400); RED BLOOD CELL COUNT(AUTO) 4.42 MIL/uL (4.00-5.50); RED CELL DISTRIBUTION WIDTH 13.3 % (11.0-15.5); WHITE BLOOD COUNT (AUTO) 5.6 K/uL (4.8-10.8)
[2024-06-06 12:42] LABS: HEMOGLOBIN A1C 5.1 % (4.0-6.0)
[2024-06-06 13:07] LABS: ALBUMIN 3.4 g/dL (3.5-5.0); BILIRUBIN,TOTAL 1.6 mg/dL (0.2-1.0); CREATININE 0.8 mg/dL (0.5-1.0); POTASSIUM 4.8 mmol/L (3.5-5.1); THYROID STIMULATING HORMONE 3.98 uIU/mL (0.36-3.74); TOTAL PROTEIN, SERUM 7.1 g/dL (6.0-8.3)
== END | disposition home or self-care (01) ==
LOC: LAB 08:07
PROVIDERS: ATTEND Student in an Organized Health Care Education/Training Program
DX: E78.2 Mixed hyperlipidemia (principal); R06.02 Shortness of breath; E03.9 Hypothyroidism, unspecified; R53.83 Other fatigue; Z79.899 Other long term (current) drug therapy
CPT/HCPCS: 36415; 80053; 80061; 83036; 84439; 84443; 84481; 85025

== ENCOUNTER → 2024-06-12 | Outpatient (CLI) | payer MEDICARE ==
[~2024-06-12] MED LIST changes: +IOHEXOL 350 MG/ML 100ML INFUS..BTL IV ONE
--- NOTE | 2024-06-12 10:58 | HMCIMG ---
CT ANGIO CHEST/THORAX AAA REASON: AAA TECHNIQUE: Thin axial images through the chest were obtained during bolus intravenous administration of 100 ml of Omnipaque 350. Sagittal and coronal reconstruction images were performed. 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 This measures 4.8 x 5.2 cm axial dimension slightly increased in size compared to previous exam. There is no evidence of dissection. Transverse and descending aorta appear normal caliber. There is a minimal right pleural effusion. Lungs are clear, there are no focal masses or infiltrates. There is cardiomegaly without pulmonary vascular congestion. Hilar and mediastinal structures appear unremarkable. IMPRESSION: 1. 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 2. No evidence of dissection. 3. Cardiomegaly without pulmonary vascular congestion. CT was performed with one or more following dose reduction techniques: automated exposure control, adjustment of the mA and kv according to patient's size, or use of a iterative reconstruction technique.
== END | disposition home or self-care (01) ==
LOC: RAH 07:58
PROVIDERS: ATTEND Student in an Organized Health Care Education/Training Program
DX: I71.21 Aneurysm of the ascending aorta, without rupture (principal); I51.7 Cardiomegaly
CPT/HCPCS: 71275; Q9967 ×2

== ENCOUNTER → 2024-07-18 | Outpatient (CLI) | payer MEDICARE ==
[~2024-07-18] MED LIST changes: -IOHEXOL 350 MG/ML 100ML INFUS..BTL IV ONE
--- NOTE | 2024-07-18 10:23 | HMCIMG ---
US AORTA LIMITED REASON: AAA. COMPARISON: None TECHNIQUE: Abdominal aorta ultrasound study was performed. FINDINGS: Abdominal aorta measures 2.3 x 1.9 cm proximally, 1.7 x 1.6 cm and mid aspect and 1 x 1 cm distally. Right common iliac artery measures 10 x 10 mm. Left common iliac artery measures 10 x 8 mm. No evidence of abdominal aortic aneurysm is seen. IMPRESSION: No evidence of abdominal aortic aneurysm is seen.
== END | disposition home or self-care (01) ==
LOC: RAH 07:37
PROVIDERS: ATTEND Student in an Organized Health Care Education/Training Program
DX: Z13.6 Encounter for screening for cardiovascular disorders (principal); I71.40 Abdominal aortic aneurysm, without rupture, unspecified
CPT/HCPCS: 76775

== ENCOUNTER → 2024-08-04 | Outpatient (CLI) | payer MEDICARE ==
[2024-08-04 12:42] LABS: ALBUMIN 3.5 g/dL (3.5-5.0); BILIRUBIN,TOTAL 1.2 mg/dL (0.2-1.0); POTASSIUM 4.5 mmol/L (3.5-5.1); THYROID STIMULATING HORMONE 4.35 uIU/mL (0.36-3.74)
== END | disposition home or self-care (01) ==
LOC: LAB 10:58
PROVIDERS: ATTEND Student in an Organized Health Care Education/Training Program
DX: E03.9 Hypothyroidism, unspecified (principal); R74.8 Abnormal levels of other serum enzymes
CPT/HCPCS: 36415; 80053; 84439; 84443

== ENCOUNTER → 2025-06-30 | Outpatient (CLI) | payer MEDICARE ==
[~2025-06-30] MED LIST changes: -ASCO100031 PO; +ASCO10004 PO; +IOHEXOL 350 MG/ML 100ML INFUS..BTL IV ONE
--- NOTE | 2025-06-30 15:19 | HMCIMG ---
EXAM: CT Thorax AAA CONTRAST: Given. (With and without -Contrast) TECHNIQUE: Contrast-enhanced CT of the thorax performed. Axial images obtained with multiplanar reformats. Intravenous contrast administered for vascular assessment. 3D images obtained. INDICATION: Thoracic aortic aneurysm, ruptured, unspecified (Hx) COMPARISON: None DOSE: total CTD (mGy): 491 Total DLP (mGy): 859 FINDINGS: THORACIC AORTA: Markedly tortuous thoracic aorta is noted. 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 Maximal diameter at root of aorta measures: 4.8 cm. Maximal diameter at arch of aorta measures: 3.9 cm. Maximal diameter at descending thoracic aorta measures: 3.4 cm. Maximal diameter abdominal aorta measures: 3 cm. Vascular atherosclerosis involving arch of aorta and thoracic and abdominal aorta. No evidence of rupture, dissection flap, or periaortic hematoma. HEART: Mild left atrial enlargement 7.5 cm in diameter. Calcification left circumflex and left descending coronary arteries Pulmonary arteries appear unremarkable. LUNGS AND PLEURA: No focal consolidation, pleural effusion, or pneumothorax. There is vascular crowding at both lung bases with the breathing artifact. No plural based or pulmonary masses. No large pleural effusions. MEDIASTINUM: No mediastinal mass or lymphadenopathy. Bones and Soft Tissues: Degenerative changes thoracic spine. No acute osseous abnormality. Chest wall structures are intact. Abdomen: Visualized upper abdominal structures appear unremarkable. Atherosclerosis involves the splenic artery. Impression: 1. Negative for aortic aneurysm. 2. Markedly tortuous thoracic aorta with mild aneurysmal dilatation of thoracic aorta at the root and arch, with diffuse atherosclerotic changes. 3. Distal thoracic aorta remains normal in caliber. 4. Mild left atrial enlargement. 5. Degenerative changes in the thoracic spine. 6. Recommend correlation with clinical findings and consideration of follow-up imaging (contrast-enhanced CT angiography) for further vascular assessment. /Colbert
== END | disposition home or self-care (01) ==
LOC: RAH 07:43
PROVIDERS: ATTEND Student in an Organized Health Care Education/Training Program
DX: I71.10 Thoracic aortic aneurysm, ruptured, unspecified (principal); M47.814 Spondylosis without myelopathy or radiculopathy, thoracic region; I70.8 Atherosclerosis of other arteries
CPT/HCPCS: 71275; Q9967